=== PATIENT | male | born 1955 | race Two or more races ===

== ENCOUNTER 2017-07-09 14:07 | Day surgery (SDC) | payer OTHER | END 2017-07-09 16:23 | disposition home or self-care (01) | LOC: SDS 14:07 → GIL 16:23 | DX: K92.1 Melena (principal); K64.8 Other hemorrhoids; E11.9 Type 2 diabetes mellitus without complications; I25.10 Atherosclerotic heart disease of native coronary artery without angina pectoris; I10 Essential (primary) hypertension | CPT/HCPCS: 45378; 82962 ==